=== PATIENT | female | born 1995 | race Two or more races ===

== ENCOUNTER 2018-09-23 05:52 | Emergency (ER) | payer MEDICAID ==
[~2018-09-23] VITALS: Ht 157.5 cm; Wt 67.1 kg
[2018-09-23] MEDS ORDERED: PREN-49 PO (06:00)
--- NOTE | 2018-09-23 06:00 | NUR ---
Patient bib [id number]. Speech is clear, speaks in complete sentences. AAOX4. No neuro deficits. Patient came for c/o spotting and lower abdominal and lower back pain x 1 week with worsening symptoms. Per patient, she is about 6 weeks . Respiratory even and unlabored, no cough no sob. No cardiovascular distress, all pulses palpable. Patient in bed at lowest position, side rails upx2, call light within reach. Fall precautions implemented per protocol. Addendum: 09/23/18 at 0604 by AGATHA Addendum: Correction - patient is 16 weeks
[2018-09-23] MEDS ORDERED: HYDROMORPHONE 1 MG/1 ML DISP.SYRIN IV ONE (06:15)
[2018-09-23] MEDS ORDERED: HYDROMORPHONE 1 MG/1 ML DISP.SYRIN ONE (06:15)
[2018-09-23] MEDS ORDERED: IV NORMAL SALINE 1000 ML BAG IV ONE (06:15)
[2018-09-23] MEDS ORDERED: ONDANSETRON 4 MG/2 ML VIAL ONE (06:15)
[2018-09-23] MEDS ORDERED: ONDANSETRON 4 MG/2 ML VIAL IV ONE (06:15)
[2018-09-23 06:29] LABS: BASOPHILS % (AUTO) 0.3 % (0.0-2.0); EOSINOPHILS % (AUTO) 0.2 % (0.0-7.0); HEMATOCRIT 29.1 % (31.2-41.9); HEMOGLOBIN 9.5 g/dL (10.9-14.3); LYMPHOCYTES # (AUTO) 1.9 K/uL (20.0-40.0); LYMPHOCYTES % (AUTO) 14.3 % (20.5-51.5); MEAN CORPUSCULAR HEMOGLOBIN 24.8 uug (24.7-32.8); MEAN CORPUSCULAR HGB CONC 33 g/dL (32.3-35.6); MEAN CORPUSCULAR VOLUME 76.4 fL (75.5-95.3); MONOCYTES # (AUTO) 0.8 K/uL (2.0-10.0); MONOCYTES % (AUTO) 5.7 % (0.0-11.0); NEUTROPHILS # (AUTO) 10.8 K/uL (1.8-8.9); NEUTROPHILS % (AUTO) 79.5 % (38.5-71.5); PLATELET COUNT (AUTO) 259 K/uL (179-408); RED BLOOD CELL COUNT(AUTO) 3.81 MIL/uL (3.63-4.92); WHITE BLOOD COUNT (AUTO) 13.5 K/uL (3.8-11.8)
--- NOTE | 2018-09-23 06:32 | NUR ---
EDIT: IV SITE FOR IV MEDICATIONS = RHAND 20G
[2018-09-23 06:36] LABS: CREATININE 0.8 mg/dL (0.6-1.3); POTASSIUM 3.3 mmol/L (3.5-5.1)
--- NOTE | 2018-09-23 08:58 | NUR ---
Patient discharged to home in stable conditon. Written and verbal after care instructions given. Patient verbalizes understanding of instructions.pt says the abdominal pain is down to tolerable level of 4/10. pt deneis any nausea or dizziness. pt not driving, pt accompanied by family members.
[2018-09-23 09:00] VITALS: BP 110/71
== END 2018-09-23 09:01 | disposition home or self-care (01) ==
LOC: ER 05:55
DX: O20.0 Threatened abortion (principal); Z79.899 Other long term (current) drug therapy; Z3A.00 Weeks of gestation of pregnancy not specified
CPT/HCPCS: 36415; 76856; 80048; 84702; 85025; 96361; 96374; 96375; 99284; J1170; J2405; A4663; J7030